=== PATIENT | female | born 1960 | race Caucasian/White ===

== ENCOUNTER 2018-03-16 11:00 | Emergency (ER) | payer OTHER ==
[~2018-03-16] VITALS: Ht 162.6 cm; Wt 59.0 kg
[~2018-03-16 11:00] MED LIST: FLEXERIL5 MG; ULTRACET; ULTRAM50 MG
[2018-03-16] MEDS ORDERED: ZITHROMAX TRI-500 MG PO (13:47)
[2018-03-16] MEDS ORDERED: TUSSI PRES-B L120 M1 PO (13:47)
== END 2018-03-16 14:26 | disposition home or self-care (01) ==
LOC: ER 11:00
DX: B34.9 Viral infection, unspecified (principal)